=== PATIENT | male | born 1970 | race Caucasian/White ===

== ENCOUNTER → 2017-08-10 | Outpatient (CLI) | payer BC ==
[~2017-08-10] MED LIST: ASPIRIN 32325 MG/TAB PO; EPI EZ PEN1 MG/ML IM; NO HOME MEDICATIONS; PREDNISONE20 MG PO; ROXICODONE 55 MG/TAB PO; ZYRTEC 10MG10 MG PO
== END ==
LOC: MC.RAD 07:30
DX: N62 Hypertrophy of breast (principal); D17.39 Benign lipomatous neoplasm of skin and subcutaneous tissue of other sites

== ENCOUNTER 2022-02-09 09:29 | Day surgery (SDC) | payer BC ==
[~2022-02-09] VITALS: Ht 182.9 cm; Wt 128.7 kg
[~2022-02-09 09:29] MED LIST changes: +TORADOL 10MG TA10 MG PO; +ZOFRAN ODT4 MG PO
[2022-02-09] MEDS ORDERED: CRESTOR 10MG10 MG PO (10:07)
[2022-02-09 10:20] VITALS: BP 137/87; PULSE 56; TEMP 97.9
[2022-02-09 11:30] VITALS: BP 123/81; PULSE 61
[2022-02-09 11:45] VITALS: BP 130/88; PULSE 51; TEMP 97.1
--- NOTE | 2022-02-09 12:05 | NUR ---
PATIENT DISCHARGED AT THIS TIME VIA WHEELCHAIR TO HOME BOUND VEHICLE AT THIS TIME. BEFORE DISCHARGE PATIENT VERBALIZED UNDERSTANDING OF DISCHARGE INSTRUCTIONS AND FOLLOW UP. PT TOLERATED PO INTAKE WELL WITH NO PAIN OR DISCOMFORT NOTED. CURRENTLY ALERT AND ORIENTED X4, AMBULATES INDEPENDENTLY, AND FAMILY IS IN ROOM WITH HIM AT TIME OF DISCHARGE.
== END 2022-02-09 12:10 ==
LOC: SDCO 09:29
DX: D12.4 Benign neoplasm of descending colon (principal); K64.0 First degree hemorrhoids; E66.01 Morbid (severe) obesity due to excess calories; E78.5 Hyperlipidemia, unspecified; L50.8 Other urticaria; F17.220 Nicotine dependence, chewing tobacco, uncomplicated; T78.2XXA Anaphylactic shock, unspecified, initial encounter; Z68.39 Body mass index [BMI] 39.0-39.9, adult; X58.XXXA Exposure to other specified factors, initial encounter
CPT/HCPCS: J2704; J7030